=== PATIENT | male | born 1960 | race Caucasian/White ===

== ENCOUNTER 2020-04-09 07:56 | Day surgery (SDC) | payer OTHER ==
[~2020-04-09 07:56] MED LIST: LIDOCAINE 2% INJ-PF (20 MG/ML) 10 ML AMPUL ONE; PROPOFOL INJ 200 MG/20 ML VIAL IV ONE
--- NOTE | 2020-04-09 10:13 | Operative Report ---
Operative Report DATE OF SURGERY: 04/09/20 Operative Report: The risk, benefits and alternatives of the procedure including the risks of bleeding, perforation requiring surgery have been explained to the patient in detail and informed consent has been obtained. Patient is taken back to the endoscopy suite and placed in a left, lateral decubital position. Timeout was called. Propofol medication is administered. Rectal examination is done which did not reveal any masses, tears or fissures. An Olympus videoscope was introduced into the patient's rectum. Scope was then carefully advanced all the way to the cecum. Cecum was identified by the usual anatomical landmarks including the ileocecal valve as well as the appendiceal office. Photodocumentation is obtained. Scope was then sequentially pulled back via the various segments of the colon including the ascending colon, back fracture, transverse colon, splenic flexure, descending colon finding to the rectosigmoid portions of the colon. Retroflexion maneuvers performed. The risks benefits and alternatives of the procedure explained to the patient in detail and informed consent is obtained.A GIF Olympus video scope was inserted into the patient's mouth and hypopharynx, the esophagus is identified intubated and insufflated ,the scope was then advanced through the esophagus stomach and duodenum ,retroflexion maneuver is done the esophagus stomach and first and second portions of the duodenum examined PREOPERATIVE DIAGNOSIS: Personal history of polyp. Dysphagia POSTOPERATIVE DIAGNOSIS: Moderately severe left-sided diverticulosis with mild stricturing. Biopsies obtained. Internal hemorrhoids. Hiatal hernia. Schatzki's ring which was dilated. Gastritis status post biopsy OPERATION: Colonoscopy with biopsy. EGD with dilation. EGD with biopsy SURGEON: ELY PRADO ANESTHESIA: LMAC TISSUE REMOVED OR ALTERED: As noted above. COMPLICATIONS: None. ESTIMATED BLOOD LOSS: None. INTRAOPERATIVE FINDINGS: As noted above. PROCEDURE: Patient tolerated the procedure well. No Postprocedure complications are noted. Patient is discharged in good condition. Discharge date 04/09/2020. Discharge diet: Regular. Discharge activity: Regular. 2 to 3-week follow-up to discuss findings. Patient is instructed to call the office or proceed to the emergency room should there be any further problems or questions. Wait on the pathology. 5-year surveillance colonoscopy.
[2020-04-09 10:48] VITALS: BP 159/91
== END 2020-04-09 10:55 | disposition home or self-care (01) ==
LOC: END 07:56
PROVIDERS: ATTEND Internal Medicine Gastroenterology
DX: Z12.11 Encounter for screening for malignant neoplasm of colon (principal); K57.30 Diverticulosis of large intestine without perforation or abscess without bleeding; K64.8 Other hemorrhoids; K44.9 Diaphragmatic hernia without obstruction or gangrene; K22.2 Esophageal obstruction; K29.50 Unspecified chronic gastritis without bleeding; Z86.010 Personal history of colon polyps; I10 Essential (primary) hypertension; F17.210 Nicotine dependence, cigarettes, uncomplicated; E78.2 Mixed hyperlipidemia; Z79.899 Other long term (current) drug therapy; Z88.8 Allergy status to other drugs, medicaments and biological substances; Z03.818 Encounter for observation for suspected exposure to other biological agents ruled out
CPT/HCPCS: 43239; 45380; 87635; 88305 ×2; 00813; J2704; J3490; C9803; 813